=== PATIENT | female | born 1990 | race African-American/Black ===

== ENCOUNTER 2017-11-12 18:27 | Emergency (ER) | payer SELFPAY ==
[~2017-11-12] VITALS: Ht 152.4 cm; Wt 71.8 kg
[2017-11-12 19:53] LABS: APPEARANCE SL.HAZY ((CLEAR)); BILIRUBIN NEGATIVE; BLOOD NEGATIVE; COLOR YELLOW ((YELLOW)); GLUCOSE (STRIP) NEGATIVE; KETONES NEGATIVE; LEUKOCYTES SMALL; NITRITE NEGATIVE; PROTEIN (STRIP) NEGATIVE; SPECIFIC GRAVITY 1.023 (1.000-1.030); UROBILINOGEN 0.2 MG/DL (0.2-1.0)
[2017-11-12 20:02] LABS: BACTERIA RARE /HPF; EPITHELIAL CELLS 1+ /HPF; MUCUS TRACE /LPF; RED BLOOD CELLS 0-5 /HPF (0-5); UCUL ADDED? YES
[2017-11-12 20:28] LABS: ALBUMIN 4.4 g/dL (3.2-4.8); CHLORIDE 106 mEq/L (99-109); POTASSIUM 3.6 mEq/L (3.7-5.4); SODIUM 139 mEq/L (136-147)
[2017-11-12 20:29] LABS: HEMATOCRIT 33.6 % (36.0-46.0); HEMOGLOBIN 10.2 G/DL (11.9-15.5); MCH 22.6 PG (29.0-34.0); MCHC 30.4 G/DL (30.0-36.0); MCV 74.5 FL (83-99); PLATELET COUNT 601 K/uL (156-360); RBC DIS.WIDTH-CV 16.9 % (11.8-14.6); RBC DIS.WIDTH-SD 45.1 % (39-53); RED BLOOD COUNT 4.51 M/uL (3.80-5.20); WHITE BLOOD COUNT 10.8 K/uL (4.1-10.2)
[2017-11-12 20:31] LABS: TOTAL PROTEIN 8.9 g/dL (6.4-8.3)
[2017-11-12 20:32] LABS: TOTAL BILIRUBIN 0.2 mg/dL (0.0-1.0)
[2017-11-12 20:34] LABS: CREATININE 0.7 mg/dL (0.6-1.3)
[2017-11-12 20:45] LABS: GFR ESTIMATE (CALCULATED) > 59 mL/min/
[2017-11-12 20:53] LABS: QUANTITATIVE HCG < 4.0 MIU/ML
[2017-11-12 21:02] LABS: GLUCOSE 131 mg/dL (70-99)
[2017-11-12 21:06] LABS: ALKALINE PHOSPHATASE 80 IU/L (3-129)
[2017-11-12 21:07] LABS: UREA NITROGEN (BUN) 12 mg/dL (9-23)
[2017-11-12 21:08] LABS: AST (GOT) 18 IU/L (2-34)
[2017-11-12 21:09] LABS: ALT (GPT) 15 IU/L (3-49); LIPASE 26 U/L (1.0-51.0)
[2017-11-12 21:16] LABS: TROP-I INTERPRETATION NEGATIVE; TROPONIN-I < 0.01 ng/mL (0.0-0.30)
[2017-11-12] MEDS ORDERED: ZANTAC300 MG PO (21:59)
[2017-11-12] MEDS ORDERED: PROCARDIA XL30 MG PO (22:08)
[2017-11-12 22:15] VITALS: BP 159/113
== END 2017-11-12 22:17 | disposition home or self-care (01) ==
LOC: EME 18:27
DX: R10.13 Epigastric pain (principal); I10 Essential (primary) hypertension; D64.9 Anemia, unspecified
CPT/HCPCS: 80053; 81003; 83690; 84484; 84702; 85027; 87086; 93005; 99281; 99284